=== PATIENT | male | born 1970 | race Caucasian/White ===

== ENCOUNTER 2018-04-22 17:36 | Emergency (ER) | payer BC, OTHER ==
[2018-04-22] MEDS ORDERED: MORPHINE 4 MG/ML SYR ONE (18:19)
[2018-04-22] MEDS ORDERED: ONDANSETRON 4 MG/2 ML VIAL ONE (18:27)
[2018-04-22] MEDS ORDERED: LIDOCAINE 1% MPF 30 ML VIAL ONE (19:21)
--- NOTE | 2018-04-22 19:47 | EDPHYS ---
Physician Documentation [facility] Name: Fidel Chang Age: 48 yrs Sex: Male : 1970 Arrival Date: 04/22/2018 Time: 17:40 Bed 6 Private MD: ED Physician Miki Brock HPI: 04/22 19:00 This 48 yrs old Male presents to ER via Ambulatory with complaints of pm1 Shoulder Injury - Dislocation. 19:00 The patient or guardian complains of deformity, pain. right shoulder. Context: The pm1 problem was sustained at a sports field or court, resulted from a fall, Playing basketball, Onset: The symptoms/episode began/occurred 1 hour(s) ago. Modifying factors: the symptoms are alleviated by remaining still, The symptoms are aggravated by movement. Associated signs and symptoms: Pertinent negatives: Numbness in right arm tingling. Severity of symptoms: in the emergency department the symptoms are actually worse. Treatment prior to arrival includes: Attempted reduction of shoulder at the basketball court by other players. The patient has not experienced similar symptoms in the past. The patient has not recently seen a physician. Historical: - Allergies: 17:50 No Known Allergies; aa5 - Home Meds: 17:50 None [Active]; aa5 - PMHx: 17:50 None; aa5 - PSHx: 17:50 Vasectomy; Tonsillectomy; aa5 - Immunization history:: Flu vaccine is not up to date. - Social history:: Smoking status: Patient/guardian denies using tobacco. - Ebola Screening: : No symptoms or risks identified at this time. ROS: 19:00 Constitutional: Negative for fever, chills, and weight loss, Eyes: Negative for injury, pm1 pain, redness, and discharge, ENT: Negative for injury, pain, and discharge, Neck: Negative for injury, pain, and swelling, Cardiovascular: Negative for chest pain, palpitations, and edema, Respiratory: Negative for shortness of breath, cough, wheezing, and pleuritic chest pain, Abdomen/GI: Negative for abdominal pain, nausea, vomiting, diarrhea, and constipation, Back: Negative for injury and pain. 19:00 Skin: Negative for injury, rash, and discoloration, Neuro: Negative for headache, weakness, numbness, tingling, and seizure. 19:00 MS/extremity: Positive for injury or acute deformity, pain, of the right shoulder. Exam: 19:00 Constitutional: This is a well developed, well nourished patient who is awake, alert, pm1 and in no acute distress. Head/Face: Normocephalic, atraumatic. Eyes: Pupils equal round and reactive to light, extra-ocular motions intact. Lids and lashes normal. Conjunctiva and sclera are non-icteric and not injected. Cornea within normal limits. Periorbital areas with no swelling, redness, or edema. ENT: Nares patent. No nasal discharge, no septal abnormalities noted. Tympanic membranes are normal and external auditory canals are clear. Oropharynx with no redness, swelling, or masses, exudates, or evidence of obstruction, uvula midline. Mucous membranes moist. Neck: Trachea midline, no thyromegaly or masses palpated, and no cervical lymphadenopathy. Supple, full range of motion without nuchal rigidity, or vertebral point tenderness. No Meningismus. Chest/axilla: Normal chest wall appearance and motion. Nontender with no deformity. No lesions are appreciated. Cardiovascular: Regular rate and rhythm with a normal S1 and S2. No gallops, murmurs, or rubs. Normal PMI, no JVD. No pulse deficits. Respiratory: Lungs have equal breath sounds bilaterally, clear to auscultation and percussion. No rales, rhonchi or wheezes noted. No increased work of breathing, no retractions or nasal flaring. Abdomen/GI: Soft, non-tender, with normal bowel sounds. No distension or tympany. No guarding or rebound. No evidence of tenderness throughout. Back: No spinal tenderness. No costovertebral tenderness. Full range of motion. Skin: Warm, dry with normal turgor. Normal color with no rashes, no lesions, and no evidence of cellulitis. 19:00 Musculoskeletal/extremity: Extremities: grossly normal except: noted in the right shoulder: pain, Pulses: noted to be 2+ in the right radial artery and right brachial artery, the right arm Sensation intact. 19:00 Neuro: Orientation: is normal, Motor: is normal, moves all fours, Sensation: is normal, no obvious gross deficits. Vital Signs: 17:50 BP 139 / 86; Pulse 107; Resp 18 S; Temp 98.7(O); Pulse Ox 96% on R/A; Weight 90.72 kg aa5 (R); Height 6 ft. 0 in. (182.88 cm) (R); Pain 5/10; 19:23 BP 125 / 83; Pulse 78; Resp 18; Pulse Ox 100% on R/A; aj1 20:16 BP 131 / 88; Pulse 82; Resp 18; Pulse Ox 97% on R/A; aj1 17:50 Body Mass Index 27.12 (90.72 kg, 182.88 cm) aa MDM: 18:16 Patient medically screened. pm1 19:44 Data reviewed: vital signs. Data interpreted: Pulse oximetry: on room air is 100 %. pm1 Interpretation: normal. Counseling: I had a detailed discussion with the patient and/or guardian regarding: the historical points, exam findings, and any diagnostic results supporting the discharge/admit diagnosis, radiology results, the need for outpatient follow up, for definitive care, a orthopedic surgeon, to return to the emergency department if symptoms worsen or persist or if there are any questions or concerns that arise at home. 04/22 18:44 Order name: Shoulder Right (2 View) XRAY pm1 04/22 19:51 Order name: RAD; Complete Time: 20:07 EDWY 04/22 18:20 Order name: IV Saline Lock; Complete Time: 18:21 aj 04/22 18:43 Order name: Conscious Sedation; Complete Time: 19:06 pm1 04/22 19:49 Order name: Shoulder Immobilizer; Complete Time: 20:01 pm1 Administered Medications: 18:21 Drug: morphine 4 mg Route: IVP; Site: left antecubital; aj1 19:45 Follow up: Response: No adverse reaction; Pain is decreased aj1 18:21 Drug: Zofran 4 mg Route: IVP; Site: left antecubital; aj1 20:18 Follow up: Response: No adverse reaction aj1 19:44 Not Given (Physician Discretion): Lidocaine (1 %) 20 ml 20 ml Infiltration once; to pm1 bedside Disposition: 04/22/18 19:46 Discharged to Home. Impression: Right Acromioclavicular joint separation. - Condition is Stable. - Discharge Instructions: How to Use a Shoulder Immobilizer, Shoulder Separation. - Prescriptions for Tylenol- Codeine #3 300-30 mg Oral Tablet - take 2 tablets by ORAL route every 6 hours As needed; 20 tablet. Diclofenac Sodium 75 mg Oral Tablet Sustained Release - take 1 tablet by ORAL route 2 times per day; 30 tablet. - Medication Reconciliation Form, Thank You Letter, Antibiotic Education, Prescription Opioid Use form. - Follow up: Emergency Department; When: As needed; Reason: Worsening of condition. Follow up: Bry Gonzalez MD; When: 2 - 3 days; Reason: Recheck today's complaints, Continuance of care, Re-evaluation by your physician. - Problem is new. - Symptoms have improved. Addendum: 04/25/2018 06:57 Co-signature as Attending Physician, Miki Brock MD I agree with the assessment and k dr plan of care. Signatures: Dispatcher [employer] EDMS Kenna Harris RN RN aj1 Miki Brock MD MD [facility] Vielka Durand RN RN aa5 Gary Rosa, FREDDY TRADING ANALYST pm1 Corrections: (The following items were deleted from the chart) 04/22 19:49 19:44 Sling ordered. pm1 pm1 20:19 19:46 04/22/2018 19:46 Discharged to Home. Impression: Right Acromioclavicular joint aj1 separation. Condition is Stable. Forms are Medication Reconciliation Form, Thank You Letter, Antibiotic Education, Prescription Opioid Use. Follow up: Emergency Department; When: As needed; Reason: Worsening of condition. Follow up: Bry Gonzalez; When: 2 - 3 days; Reason: Recheck today's complaints, Continuance of care, Re-evaluation by your physician. Problem is new. Symptoms have improved. pm1
--- NOTE | 2018-04-22 19:47 | ER ---
Nurse's Notes [facility] Name: Fidel Chang Age: 48 yrs Sex: Male : 1970 Arrival Date: 04/22/2018 Time: 17:40 Bed 6 Private MD: Diagnosis: Right Acromioclavicular joint separation Presentation: 04/22 17:50 Presenting complaint: Patient states: "I stumbled playing basketball with the kids and aa5 fell onto my shoulder". Pt c/o pain to right shoulder/right clavicle. 17:50 Transition of care: patient was not received from another setting of care. Onset of aa5 symptoms was April 22, 2018. Risk Assessment: Do you want to hurt yourself or someone else? Patient reports no desire to harm self or others. Initial Sepsis Screen: Does the patient meet any 2 criteria? No. Patient's initial sepsis screen is negative. Does the patient have a suspected source of infection? No. Patient's initial sepsis screen is negative. Care prior to arrival: None. 17:50 Method Of Arrival: Ambulatory aa5 17:50 Acuity: DORIS 3 aa5 Historical: - Allergies: 17:50 No Known Allergies; aa5 - Home Meds: 17:50 None [Active]; aa5 - PMHx: 17:50 None; aa5 - PSHx: 17:50 Vasectomy; Tonsillectomy; aa5 - Immunization history:: Flu vaccine is not up to date. - Social history:: Smoking status: Patient/guardian denies using tobacco. - Ebola Screening: : No symptoms or risks identified at this time. Screenin:45 Abuse screen: Denies threats or abuse. Denies injuries from another. Nutritional aj1 screening: No deficits noted. Tuberculosis screening: No symptoms or risk factors identified. 20:17 Fall Risk None identified. aj1 Assessment: 17:45 General: Appears uncomfortable, Behavior is calm, cooperative, appropriate for age. aj1 Pain: Complains of pain in anterior aspect of right shoulder and posterior aspect of right shoulder Pain does not radiate. Neuro: Level of Consciousness is awake, alert, obeys commands. Cardiovascular: Patient's skin is warm and dry. Respiratory: Airway is patent Respiratory effort is even, unlabored, Respiratory pattern is regular, symmetrical. GI: No signs and/or symptoms were reported involving the gastrointestinal system. : No signs and/or symptoms were reported regarding the genitourinary system. EENT: No signs and/or symptoms were reported regarding the EENT system. Derm: No signs and/or symptoms reported regarding the dermatologic system. Skin is pink, warm \\T\\ dry. normal. Musculoskeletal: Range of motion: limited in right shoulder. 18:45 Reassessment: Patient appears in no apparent distress at this time. No changes from aj previously documented assessment. Patient and/or family updated on plan of care and expected duration. Pain level reassessed. Patient is alert, oriented x 3, equal unlabored respirations, skin warm/dry/pink. 19:22 Reassessment: Patient appears in no apparent distress at this time. No changes from aj1 previously documented assessment. Patient and/or family updated on plan of care and expected duration. Pain level reassessed. Patient is alert, oriented x 3, equal unlabored respirations, skin warm/dry/pink. 20:16 Reassessment: Patient appears in no apparent distress at this time. No changes from aj1 previously documented assessment. Patient and/or family updated on plan of care and expected duration. Pain level reassessed. Patient is alert, oriented x 3, equal unlabored respirations, skin warm/dry/pink. Vital Signs: 17:50 BP 139 / 86; Pulse 107; Resp 18 S; Temp 98.7(O); Pulse Ox 96% on R/A; Weight 90.72 kg aa5 (R); Height 6 ft. 0 in. (182.88 cm) (R); Pain 5/10; 19:23 BP 125 / 83; Pulse 78; Resp 18; Pulse Ox 100% on R/A; aj1 20:16 BP 131 / 88; Pulse 82; Resp 18; Pulse Ox 97% on R/A; aj1 17:50 Body Mass Index 27.12 (90.72 kg, 182.88 cm) aa5 ED Course: 17:40 Patient arrived in ED. as 17:44 Kirk Laguna, SARA is Primary Nurse. bp 17:44 Gary Rosa NP is PHCP. pm1 17:44 Miki Brock MD is Attending Physician. pm1 17:45 Patient has correct armband on for positive identification. Bed in low position. Call aj1 light in reach. Side rails up X 1. 17:50 Arm band placed on Patient placed in an exam room, on a stretcher. aa5 17:56 Triage completed. aa5 17:58 Kenna Harris, RN is Primary Nurse. aj1 18:15 Inserted saline lock: 20 gauge in left antecubital area, using aseptic technique. aj1 19:16 X-ray completed. Portable x-ray completed in exam room. Patient tolerated procedure ag1 well. 19:45 Bry Gonzalez MD is Referral Physician. pm1 20:16 No provider procedures requiring assistance completed. IV discontinued, intact, aj1 bleeding controlled, No redness/swelling at site. Pressure dressing applied. Administered Medications: 18:21 Drug: morphine 4 mg Route: IVP; Site: left antecubital; aj1 19:45 Follow up: Response: No adverse reaction; Pain is decreased aj1 18:21 Drug: Zofran 4 mg Route: IVP; Site: left antecubital; aj1 20:18 Follow up: Response: No adverse reaction aj1 19:44 Not Given (Physician Discretion): Lidocaine (1 %) 20 ml 20 ml Infiltration once; to pm1 bedside Outcome: 19:46 Discharge ordered by MD. pm1 20:17 Discharged to home ambulatory. aj1 20:17 Condition: good 20:17 Discharge instructions given to patient, Instructed on discharge instructions, follow up and referral plans. no drinking with medication, no driving heavy equipment, medication usage, Demonstrated understanding of instructions, follow-up care, medications, Prescriptions given X 2. 20:19 Patient left the ED. aj Signatures: Kenna Harris, RN RN aj1 Mari Navarro Audri, RN RN 5 Starr Gamboa [facility] Gary Rosa, FREDDY ESTATE PLANNER pm1 Kirk Laguna RN RN bp
--- NOTE | 2018-04-22 19:49 | RAD REPORT ---
EXAM DESCRIPTION: RAD - Shoulder Right 2 View - 04/22/2018 7:17 pm CLINICAL HISTORY: Right shoulder pain status post injury FINDINGS: The right distal clavicle is elevated with respect to the acromion consistent with a dislo cation. No gross fracture seen
== END 2018-04-22 20:19 | disposition home or self-care (01) ==
LOC: ER 17:36
DX: S43.101A Unspecified dislocation of right acromioclavicular joint, initial encounter (principal); W18.39XA Other fall on same level, initial encounter; Y93.67 Activity, basketball; Y92.89 Other specified places as the place of occurrence of the external cause
CPT/HCPCS: 96374; 96375; 99283; J2405